=== PATIENT | female | born 1950 | race Caucasian/White ===

== ENCOUNTER → 2016-04-27 | Outpatient (CLI) | payer MEDICARE ==
[2014-09-05 10:29] VITALS: BP 127/61
[~2016-04-27] MED LIST: ALPR0.25 PO; AMLO5TAB2 PO; HYDR25TA9 PO; METO25TA4 PO; METO50TA2 PO; PHEN105C PO; SIMV10TA3 PO; SIMV20TA3 PO
--- NOTE | 2016-04-27 16:04 | KCIC ---
PROCEDURE Bone density. HISTORY Postmenopausal female. Screening. COMPARISON Bone density DEXA 07/15/2013. FINDINGS Dual photon densitometry of the lumbar spine and left proximal femur is performed. Bone mineral density values are measured in grams per cm2. Lumbar spine, L1-L4, total bone mineral density 0.949, T-score -0.9, Z-score 0.9. No significant change from prior study. Left total femur bone mineral density 0.769, T-score -1.4, Z-score -0.2. No significant change from prior study. World Health Organization criteria for bone mineral density interpretation classify patient's as normal (T-score at or above -1.0), osteopenic (T-score between -1 and -2.5), or osteoporotic (T-score at or below -2.5). IMPRESSION Low normal bone mineral density of the lumbar spine and mild osteopenia of the left femur. Electronically signed by: Silver Lama MD (Apr 27, 2016 16:02:12)
== END | disposition home or self-care (01) ==
LOC: KCIC DEXA 14:43
PROVIDERS: ATTEND Physician Assistant Medical
DX: M85.80 Other specified disorders of bone density and structure, unspecified site (principal)
CPT/HCPCS: 77080

== ENCOUNTER → 2019-02-21 | Outpatient (CLI) | payer MEDICARE ==
[2014-09-05 10:29] VITALS: BP 127/61
[~2019-02-21] MED LIST changes: +AMLO5TAB10 PO; -AMLO5TAB2 PO; +HYDR-2145 PO; -HYDR25TA9 PO; -METO50TA2 PO; +METO50TA6 PO; -PHEN105C PO; +PHEN105C32 PO; +SIMV10TA15 PO; -SIMV10TA3 PO; +SIMV20TA18 PO; -SIMV20TA3 PO
--- NOTE | 2019-03-06 13:31 | KCIC ---
BILATERAL SCREENING MAMMOGRAM, 3-D History: Routine screening. Comparison: Bilateral mammogram August 09, 2015. Technique: MLO and CC digital tomosynthesis (3D) images obtained. Radiologist reviewed these images on dedicated workstation. Findings: Breast Tissue Density B : There are scattered areas of fibroglandular density. Benign calcifications are redemonstrated. There are no dominant masses, suspicious microcalcifications, or architectural distortion. IMPRESSION: No mammographic evidence of malignancy. Recommend routine screening. BI-RADS category 2: Benign findings. Patient information is entered into reminder system with a target due date for the next screening mammogram. Mammography is the most sensitive method for finding small breast cancers, but it does not detect them all and is not a substitute for careful clinical examination. A negative mammogram does not negate a clinically suspicious finding and should not result in delay in biopsying a clinically suspicious abnormality. "Our facility is accredited by the [employer] Mammography Program." Electronically signed by: Silver Lama MD (03/06/2019 1:28 PM) [id number]
== END | disposition home or self-care (01) ==
LOC: KCIC MAMMO 14:30
PROVIDERS: ATTEND Physician Assistant Medical
DX: Z12.31 Encounter for screening mammogram for malignant neoplasm of breast (principal); N64.89 Other specified disorders of breast
CPT/HCPCS: 77063; 77067